=== PATIENT | female | born 2000 | race Caucasian/White ===

== ENCOUNTER 2023-04-03 19:52 | Emergency (ER) | payer MEDICAID, SELFPAY ==
[2023-04-03 20:02] VITALS: BP 113/62; PULSE 110; RESP 17; TEMP 37.1; O2SAT 98; BMI 30.2
[2023-04-03 20:24] LABS: Basophils % 0.1 % (0.1-2.0); Eosinophils # 0.1 K/mm3 (0.0-0.4); Eosinophils % 0.4 % (0.1-12.0); Hematocrit 38.9 % (37.0-47.0); Lymphocytes # 1.5 K/mm3 (0.7-4.5); Lymphocytes % 12.2 % (10-50); Mean Corpuscular HGB Conc 33.4 g/dL (31.8-35.4); Mean Corpuscular Hemoglobin 28.3 pg (27.0-31.2); Mean Corpuscular Volume 84.9 fl (81-99); Mean Platelet Volume 7.4 fl (7.4-10.4); Monocytes # 0.3 K/mm3 (0.1-1.0); Monocytes % 2.4 % (1.7-9.3); Neutrophils # 10.4 K/mm3 (1.8-7.8); Neutrophils % 84.9 % (37.0-80.0); Platelet Count 295 K/mm3 (142-424); Red Blood Count 4.58 M/mm3 (4.20-5.40); Red Cell Distribution Width 13.6 % (11.5-17.5); White Blood Count 12.2 K/mm3 (4.8-10.8)
[2023-04-03 20:29] LABS: Alanine Aminotransferase 26 U/L (12-78); Albumin Level 4.1 g/dl (3.5-5.0); Albumin/Globulin Ratio 1.4 (1.1-1.8); Alkaline Phosphatase 96 U/L (38-126); Anion Gap 13.9 mEq/L (5-15); Aspartate Amino Transferase 28 U/L (14-36); Bilirubin,Total 1.2 mg/dl (0.2-1.3); Blood Urea Nitrogen 5 mg/dl (7-17); Calcium 9.4 mg/dl (8.4-10.2); Carbon Dioxide 22 mmol/L (22.0-30.0); Chloride 105 mmol/L (98-107); Creatinine Clearance Estimated 251 mL/min (50-200); Estimated Glomerular Filt Rate 198 ml/min (>60); GFR (African American) 239 ML/MIN (>60); Glucose 95 mg/dl (74-100); Potassium 3.9 mmoL/L (3.5-5.1); Sodium 137 mmol/L (136-145); Total Protein,Serum 7.1 g/dl (6.3-8.2)
--- NOTE | 2023-04-03 20:37 | ECG_ITS ---
APPROVED REPORT Exam: Resting ECG HR:82 bpm ECG Measurements Heart Rate 82 AXES OH 143 P 37 QRSd 89 QRS 82 QT 358 T 64 QTc 397 Conclusion SINUS RHYTHM WITH SINUS ARRHYTHMIA NORMAL ECG UNCONFIRMED REPORT Electronically signed by : Tomas Valentino MD 04/06/2023 16:11:58
--- NOTE | 2023-04-03 20:54 | [facility].EDGENADL ---
Discharge Plan Disposition Patient Disposition: Home, Self-Care Condition: Good Prescriptions Prescriptions: New ondansetron 4 mg tablet,disintegrating 4 mg PO Q8H PRN (Reason: nausea and vomiting) 4 Days Qty: 12 0RF Referrals Follow up/Referrals: Provider,Referral, [Primary Care Provider] - See instructions Activity Restrictions/Add. Instructions Additional Instructions/Restrictions: You were evaluated in the emergency department today. At this time, your work-up is reassuring. Please draft roller picker your prescription for Zofran and take as needed for nausea and vomiting. Follow-up closely with your OB as well as your primary care provider. Return to the emergency department for any new or worsening symptoms. Of note, your blood type is O-. Should you have vaginal bleeding or other issues with your /around , you will need to have a RhoGAM vaccination. Your primary care provider will be able to do this. Clinical Impressions Clinical Impression: Near syncope, Hyperemesis gravidarum Instructions Patient Instructions: Hyperemesis Gravidarum, DI for Abdominal Pain -- Early Discharge ED Provider: Maria Eugenia Khan General Adult HPI General Chief complaint: Fall Stated complaint: 14 wk Preg 1930 fell fr shower on stomanch Time Seen by Provider: 04/03/23 20:05 Mode of Arrival: Family Vehicle Source of Information: Patient Limitations: No Limitations Description of Symptoms (Recalled from ER Triage Doc. by RN): 22 yo female 14 weeks preg, , presents for CC of Fall. Patient reports taking a shower earlier and becoming weak while in the shower and collapsing . Patient states she landed against her stomach against the floor, and laid there a few minutes before getting up. PMH: includes hyperemesis gravidium NKDA. Recent tooth extraction. Follows with [facility] and recently treated for hyperemesis related issues. Afebrile. Denies sick contacts. History of Present Illness HPI narrative: This patient is a 22-year-old female G3, P1 at estimated 14 weeks gestation presenting to the emergency department after a fall in the shower. She reports that she was taking an extremely hot shower and began to feel lightheaded. She went to get out, but subsequently became weak and fell onto her abdomen. She has felt cramping in her lower abdomen since. She denies head injury, loss of consciousness, or other concerns. She states that she has been feeling rough today, she has had a lot of issues with hyperemesis gravidarum and ran out of her Zofran. She also notes marijuana use, which often contributes to symptoms. She follows with [facility] and states that otherwise her has been uncomplicated thus far. She denies any headache, vision changes, chest pain, shortness of breath, abnormal vaginal discharge, vaginal bleeding, leakage of fluid, or other concerns. Related Data Previous Rx's Medication Instructions Recorded ondansetron 4 mg disintegrating 4 mg PO Q8H PRN nausea and 04/03/23 tablet vomiting 4 days #12 tabs Allergies Allergy/AdvReac Type Severity Reaction Status Date / Time No Known Allergies Allergy Verified 04/03/23 20:14 [facility] Disclaimer: The information contained in this section may have been updated after the patient was seen, as this information can be updated by other users. Social History Smoking Status: Current some day smoker alcohol intake: never current occupational status: employed Travel in the last 8 weeks: None ROS Obtained: Yes All systems reviewed & no additional complaints except as documented Physical Exam General General appearance: alert and in no apparent distress Head Head exam: atraumatic and normocephalic Eye Eye exam: Present normal appearance, PERRL and EOMI ENT ENT exam: Present normal exam, normal oropharynx, mucous membranes moist and normal external ear exam Ne
--- NOTE | 2023-04-03 20:55 | PC.NURSE ---
pt requested ice water.
[2023-04-03 21:14] LABS: HCG,Quantitative 97592 mIU/ml (0-5.42)
[2023-04-03 21:55] LABS: Microscopic, Urine URINE MICROSCOPIC (MICROSCOPIC)
[2023-04-03 22:03] LABS: Appearance,Urine CLEAR (Clear); Blood, Urine Negative (Negative); Color,Urine YELLOW (Yellow); Glucose,Urine (UA) Negative (Negative); Ketones,Urine 3+ (Negative); Leukocyte Esterase,Urine TRACE (Negative); Nitrate,Urine Negative (Negative); PH,Urine 6.5 (5.0-8.5); Protein,Urine TRACE (Negative); Specific Gravity, Urine 1.025 (1.005-1.030)
[2023-04-03 22:09] LABS: Bilirubin,Urine 1+ (Negative)
[2023-04-03 22:30] LABS: WBC,Urine Occasional #/hpf (0-3)
[2023-04-03 22:31] LABS: Bacteria,Urine Trace /lpf
[2023-04-03 22:37] VITALS: BP 112/71; PULSE 72; RESP 15; TEMP 36.7; O2SAT 98
== END 2023-04-03 22:39 | disposition home or self-care (01) ==
PROVIDERS: Emergency Provider Emergency Medicine
DX: O21.9 Vomiting of pregnancy, unspecified (principal); O26.892 Other specified pregnancy related conditions, second trimester; R55 Syncope and collapse; Z3A.14 14 weeks gestation of pregnancy; O99.332 Smoking (tobacco) complicating pregnancy, second trimester; F17.200 Nicotine dependence, unspecified, uncomplicated
CPT/HCPCS: 80053; 81001; 84702; 85025; 86850; 86870; 93005; 96361; 96374; 99285; J2405